=== PATIENT | female | born 1960 | race Caucasian/White ===

== ENCOUNTER → 2023-01-10 13:57 | Outpatient (CLI) | payer MEDICAID, SELFPAY ==
--- NOTE | 2023-01-10 14:01 | MR_ITS ---
FINAL REPORT CLINICAL HISTORY: LUMBAR RADICULOPATHY, low back pain with bilateral sciatica FINDINGS: Multiplanar MR imaging of the lumbar spine was performed without contrast. On the sagittal T2-weighted images, there is abnormal decreased signal throughout the lumbar discs with sparing at the L5-S1 level. The vertebrae are of normal height. The vertebral alignment is normal. L1-2: There is no significant canal stenosis or neural foraminal narrowing. L2-3: There is no significant canal stenosis or neural foraminal narrowing. L3-4: A mild diffuse disc bulge is present with mild bilateral neural foraminal narrowing. L4-5: A mild diffuse disc bulge is present with mild bilateral neural foraminal narrowing. L5-S1: There is no significant canal stenosis or neural foraminal narrowing. IMPRESSION: Mild diffuse disc bulges at L3-4 and L4-5 with mild bilateral neural foraminal narrowing. Reviewed, Interpreted and Dictated by Joao Whitley MD Transcribed by Ani Laird Authenticated and [facility]
== END ==
PROVIDERS: PCP Anesthesiology; Visit Provider Anesthesiology
DX: M54.16 Radiculopathy, lumbar region (principal)
CPT/HCPCS: 72148; 76376

== ENCOUNTER 2023-03-12 08:26 | Outpatient (RCR) | payer MEDICAID, SELFPAY | END 2023-03-12 08:30 | disposition home or self-care (01) | LOC: PT 08:26 | PROVIDERS: PCP Anesthesiology; Visit Provider Physical Medicine & Rehabilitation | DX: I60.9 Nontraumatic subarachnoid hemorrhage, unspecified (principal); R53.1 Weakness | CPT/HCPCS: 97163 ==

== ENCOUNTER 2023-03-12 08:29 | Outpatient (RCR) | payer MEDICAID, SELFPAY | END 2023-03-12 08:35 | disposition home or self-care (01) | LOC: OT 08:29 | PROVIDERS: PCP Anesthesiology; Visit Provider Physical Medicine & Rehabilitation | DX: I60.9 Nontraumatic subarachnoid hemorrhage, unspecified (principal); M62.81 Muscle weakness (generalized) ==

== ENCOUNTER 2023-03-12 08:31 | Outpatient (RCR) | payer MEDICAID, SELFPAY ==
--- NOTE | 2023-03-12 10:25 | HMH.SLAPHASI ---
Speech & Language Evaluation Speech/Language Aphasia Evaluation Start: 03/12/23 10:10 Freq: once Status: Complete Protocol: Document 03/12/23 10:10 KINJAL (Rec: 03/12/23 10:25 KINJAL [id number]) Aphasia Assessment/Goals/Plan Assessment Date of Evaluation: 03/12/23 Evaluation Type Initial Certification Assessment/Problems Cognitive communication deficit s/p SAH and PRES Does Patient Qualify for Service Yes Qualify/Failure Comment Based on the results of the cognitive communication evaluation, Leland would benefit from skilled speech therapy services in order to return to her baseline level of cognitive function. Plan Pt will be seen # times/week 1 for # weeks 12 Anticipate reaching STG in # weeks 8 Anticipate reaching LTG in # weeks 12 Pt/Guardian verbally ack understanding Yes of dx/prognosis/goals Pt/Guardian verbally ack understanding Yes of/consent to tx prog G -code Required No STG-Attending/Orientation/Memory Delayed Recall 90 Memory Recall 90 STG-Comparative/Linguistic Skills Thought Organization 90 Categorization Ability 90 STG-Divergent Thinking Deductive Reasoning 90 Senior Care Goals Increase cognitive skills to communicate Yes w/family & friends Education Instructions provided Assessment results, POC, and goals discussed with pt who expressed understanding. Pt/Caregiver Able to Recall Information Able to recall/restate Reinforcement needed No Speech & Language HPI History Present Illness Description of Patient Problem Leland is a 62 year old female presenting to [facility] for a cognitive communication evaluation. PMH is significant for PSUD, hypertension, COPD, depression, alcohol use, seizures, and alcohol withdrawal. She presented to on 02/15 with c/o AMS and was found to have PRES. Initial NIH was initially 9. She was treated nonoperatively at and [facility] to [facility]. Speech therapy goals at [facility] included high leve
== END 2023-03-12 08:35 | disposition home or self-care (01) ==
LOC: ST 08:31
PROVIDERS: PCP Anesthesiology; Visit Provider Physical Medicine & Rehabilitation
DX: I60.9 Nontraumatic subarachnoid hemorrhage, unspecified (principal); R41.841 Cognitive communication deficit
CPT/HCPCS: 92523

== ENCOUNTER → 2023-03-13 23:08 | Outpatient (CLI) | payer MEDICAID, SELFPAY ==
[2023-03-13 19:17] LABS: Basophils % 0.4 % (0.1-2.0); Eosinophils # 0.3 K/mm3 (0.0-0.4); Hematocrit 54.2 % (37.0-47.0); Hemoglobin 17.2 g/dL (12.2-16.2); Lymphocytes # 1.9 K/mm3 (0.7-4.5); Lymphocytes % 26.5 % (10-50); Mean Corpuscular HGB Conc 31.7 g/dL (31.8-35.4); Mean Corpuscular Hemoglobin 32.4 pg (27.0-31.2); Mean Corpuscular Volume 102.3 fl (81-99); Mean Platelet Volume 10.2 fl (7.4-10.4); Monocytes # 0.4 K/mm3 (0.1-1.0); Monocytes % 5.4 % (1.7-9.3); Neutrophils # 4.5 K/mm3 (1.8-7.8); Neutrophils % 63.7 % (37.0-80.0); Platelet Count 358 K/mm3 (142-424); Red Cell Distribution Width 12.5 % (11.5-17.5)
[2023-03-13 19:50] LABS: Alanine Aminotransferase 26 U/L (12-78); Albumin Level 4.6 g/dl (3.5-5.0); Albumin/Globulin Ratio 1.4 (1.1-1.8); Alkaline Phosphatase 194 U/L (38-126); Anion Gap 19.4 mEq/L (5-15); Aspartate Amino Transferase 32 U/L (14-36); Bilirubin,Total 0.7 mg/dl (0.2-1.3); Blood Urea Nitrogen 9 mg/dl (7-17); Calcium 9.7 mg/dl (8.4-10.2); Carbon Dioxide 25 mmol/L (22.0-30.0); Chloride 101 mmol/L (98-107); Chol/HDL Ratio 3.3 (1-3.5); Cholesterol 281 mg/dl (140-200); Estimated Glomerular Filt Rate 72 ml/min (>60); GFR (African American) 88 ML/MIN (>60); Globulin 3.2 g/dL (1.3-3.2); Glucose 103 mg/dl (74-100); HDL Cholesterol 85 mg/dl (40-60); Potassium 4.4 mmoL/L (3.5-5.1); Sodium 141 mmol/L (136-145); Total Protein,Serum 7.8 g/dl (6.3-8.2); Triglycerides 115 mg/dl (30-150); VLDL Cholesterol 23 mg/dL (0-40)
[2023-03-13 20:09] LABS: 25-OH Vitamin D, Total < 12.8 ng/mL (30-100)
[2023-03-13 20:21] LABS: Thyroid Stimulating Hormone 0.59 uIU/mL (0.465-4.68)
== END ==
PROVIDERS: PCP Emergency Medicine; Visit Provider Emergency Medicine
DX: R53.83 Other fatigue (principal); E55.9 Vitamin D deficiency, unspecified; Z79.899 Other long term (current) drug therapy
CPT/HCPCS: 80053; 80061; 82306; 84439; 84443; 85025